=== PATIENT | female | born 1990 | race Caucasian/White ===

== ENCOUNTER → 2017-12-12 | Outpatient (CLI) | payer OTHER ==
[~2017-12-12] MED LIST: ALBU90OI6 INH; AZIT250 PO; CALCA500CH PO; FLUSAL5005 INH; FOLI1; Verotin-Gr Cap1 EACH PO; Zofran Odt4 MG SL; [UNRECOGNIZED DRUG - OTHER] PO
[2017-12-12 18:10] LABS: Specimen Source URINE
[2017-12-13 12:03] LABS: Source Urine
== END | disposition home or self-care (01) ==
LOC: LAB 16:30
PROVIDERS: Family Medicine
DX: R30.0 Dysuria (principal)
CPT/HCPCS: 87077; 87086; 87186; 87491; 87591